=== PATIENT | male | born 1960 | race Caucasian/White ===

== ENCOUNTER 2019-01-26 22:33 | Emergency (ER) | payer OTHER ==
[~2019-01-26] VITALS: Ht 177.8 cm; Wt 99.8 kg
[2019-01-26] MEDS ORDERED: LISINOPRIL10 MG PO (22:50)
[2019-01-26] MEDS ORDERED: PRAVACHOL20 MG PO (22:51)
[2019-01-27 00:06] VITALS: BP 122/88
== END 2019-01-27 00:06 | disposition home or self-care (01) ==
LOC: ER 22:33
DX: M71.22 Synovial cyst of popliteal space [Baker], left knee (principal); I10 Essential (primary) hypertension; E78.5 Hyperlipidemia, unspecified